=== PATIENT | female | born 1990 | race Caucasian/White ===

== ENCOUNTER 2017-10-23 01:11 | Outpatient (CLI) | payer BC, SELFPAY ==
--- NOTE | 2017-10-23 10:22 | DI.REPORT_ITS ---
SYMPTOM/DIAGNOSIS: ? SIZE LARGER THAN DATES, ROUTINE OB ULTRASOUND: A viable cephalic shipley is demonstrated. The cardiac rate is 165 BPM The amniotic fluid index is 15.9 which is at the upper limits of normal. The measurements suggest a gestational age of 39 weeks and 1 day. The placenta is Grade 2 and is anterior and fundal in position. Many abnormalities cannot be diagnosed. A normal exam does not exclude a congenital anomaly. Radiology No.[id number] LMP: Exam Date: 10/23/17 [facility] wks days on EDC ([facility]) Confirmed: HISTORY: S.D, EFW/MARY ---- PREDICTED GESTATIONAL AGE NUMBER 36 +5 weeks with a range of 35 +5 week to 38 +5 weeks. 1 Determined by___1STUS___LMP_XX__HISTORY Info. pertaining to fetus # PLACENTA PRESENTATION Grade II Cephalic__XX_ Anterior__XX_Posterior___ Breech____ Right Left Transverse(head right___ Fundal_XX__Low-lying___Previa___ Transverse(head left___ Varying BIOMETRY AMNIOTIC FLUID BPD: 93 mm 37 +6 weeks Normal HC: 344 mm 39 +5 weeks AC: 356 mm 39 +3 weeks FL: 77 mm 39 +2 weeks AMNIOTIC FLUID INDEX >26 WK CRL: mm weeks Cisterna Magna: mm CI: 81 RUQ:__3.2____LUQ___4.3 Cerebellum: cm EFW: 3725 grams 98% Percentile RLQ:_3.8 LLQ___4.6____ Total:__15.9__cms Composite AGE= 39 +1 wks EDC by US___10/29/17 BIOPHYSICAL PROFILE ANATOMY IDENTIFIED SCORE 0/2 Heart: 4-Chamber___Rate:BPM___165 BPM__ LVOT: RVOT: Amniotic Fluid(>2cms)____ Stomach: Kidneys: Respirations (>30 secs) Bladder: Post. Fossa: Body Flex/Extension 3 vessel cord: Ventricles: cord insertion: Lips:____ Extremity Flex/Extension spinal morphology: Nose: Total Score= Palate: NS=not seen
== END 2017-10-23 01:12 ==
DX: O26.843 Uterine size-date discrepancy, third trimester (principal)
CPT/HCPCS: 76816; 76805

== ENCOUNTER 2017-11-18 21:28 | Observation (INO) | payer BC, SELFPAY ==
[2017-11-18] MEDS: Lactated Ringers 1,000 ML 200 ML IV (20:30)
--- NOTE | 2017-11-20 09:11 | W.PM.DS.N ---
DS: Diagnosis Discharge Diagnosis (1) Post-dates : Status: Acute Asessment and Plan: with fetus in 98th percentile at 36 week ultrasound presented for planned cervical ripening with misoprostol. Had reactive strip prior to oral administration with FHT baselin in 140's. After receiving medication, tachycardia noted to 170-180's. Pt treated with position change and LR bolus. OB content management consultant contacted after these interventions failed to improve strip. OB kindly came in to consult-- strip had begun to improve. FHT down to 160's with improved variability and clear accelerations. Cervix FT and very posterior. Plan made for discharge to home, fu with primary provider next day, and repeat US for EFW in 1-2 days. Will work towards delivery this week. Discharge Plan Discharge Details Reason For Visit: TERM LABOR Admit Date/Time: 11/18/17 21:28 Admit Provider: Yuliya Chavira Attending Provider: Yuliya Chavira Primary Care Provider: Ghanshyam Jernigan Disposition Patient Disposition: HOME Condition: Stable Hosptial Course Hospital Course: See above Discharge Instructions Activity:: Activity as Tolerated Equipment/Supplies:: No Equipment Needed Diet:: As Tolerated Discharge Orders Discharge Orders: Discharge Order (Routine); Ordered 11/18/17 Ordered By: Yuliya Chavira Discharge Data Discharge Date/Time-TO BE ENTERED AT DEPARTURE: 11/18/17 23:07 Discharge Comment: Patient okay to be discharged home per providers. DS: Summary Status at Discharge Functional status at discharge: independent ambulation Overall status at discharge: patient is back to baseline Time Spent with Patient Greater than 30 minutes Quality: AMI Clinical Trial Participant: No Exam Const General: no acute distress and well developed HENMT Head: normal to inspection and normocephalic Mouth: oral mucosae normal and moist mucous membranes Eyes General: appearance normal, both eyes and all related structures Neck Neck: normal visual inspection and full ROM Resp Effort & Inspection: normal respiratory effort and able to speak in complete sentences Auscultation: clear to auscultation bilaterally Cardio Jugular venous pressure: no JVD Rate: regular rate Rhythm: regular rhythm Heart Sounds: S1 normal and S2 normal GI Other: gravid Manual OB Exam: dilated fingertip and other Skin General skin exam: no rashes or lesions noted Neuro General: alert, awake, oriented x3 and tone normal Extrem General: normal to inspection and no clubbing, cyanosis or edema Psych Appearance: grossly normal Mental Status: mental status grossly normal Speech and Movement: speech and movement normal Mood: congruent mood DS: Data Completed studies during hospitalization [Text1]: Procedures Monitoring of Products of Conception, Cardiac Rate, External Approach (10/19/17) Date of service: 11/18/17 Time of Service: 23:00
--- NOTE | 2017-11-22 12:45 | HPE_ITS ---
DATE: November 18, 2017 ASSESSMENT/PLAN: G1, P0 at 40 weeks, 3 days with now tachycardia following Misoprostol. OB co nsult pending. +++++++++++++++ CHIEF COMPLAINT: Planned Misoprostol cervical ripening, now with tachycardia. HISTORY OF PRESENT ILLNESS: Chrissie Peñaloza is a G1, P0 currently at 40 weeks, 3 days who was admit mary under observation status for planned Misoprostol cervical ripening for large for gestational age fetus and post-dates. She has an EDC of 11/15/17 and by ultrasound a fetus that was felt to be above the 90th percentile, somewhere between 9 and 10 pounds. Given that she has an unproven pelvis the de cision was made to move towards delivery. She had been having occasional contractions but with finge rtip she was checked by nursing and then an oral dose of Misoprostol was placed at approximately 7:15 p.m. After Misoprostol she developed tachycardia with heart tones up into the 170's. She also had decreased variability with occasional variables; this was intervened upon with position change and LR bolus, however tachycardia did not improve. Decision was made to consult the obstetric douglas auto air conditioning installer who kindly agreed to come in for evaluation. PAST MEDICAL HISTORY: 1. Obesity. 2. History of migraines in high school. 3. Remote history of malaria. SURGICAL HISTORY: None. ALLERGIES: No known drug allergies. MEDICATIONS: 1. B12 one tab p.o. daily. 2. vitamin one tab p.o. daily. SOCIAL HISTORY: Nonsmoker. Drinks about one drink per month. No marijuana use. FAMILY HISTORY: Paternal grandfather with diabetes. History of twins in the family. REVIEW OF SYSTEMS: No current headaches, blurry vision. No right upper quadrant pain. No chest pain. No shortness of breath. No significant abdominal contractions. Moderate back pain associated with . No change in urination. No new musculoskeletal complaints. No leakage of fluid. No vaginal bleeding. EXAM: Vital Signs per Centricity. Patient was alert, in no acute distress. HEENT: Head was normocephalic. Pupils equal and round; extraocular movements intact. Hearing elvi sly normal. Mucous membranes were moist. NECK: Supple; no thyromegaly. HEART: Regular with no appreciable murmur. LUNGS: Clear to auscultation bilaterally. ABDOMEN: Gravid; vertex by Lenin's. Large baby, estimated weight 9 to 9.5 pounds. CERVICAL EXAM: Notable for exceedingly posterior cervix, fingertip, not effaced, high. No labial so res. Patient ambulated under her own power. No skin rashes. LABORATORY DATA: Blood type O positive. RPR nonreactive. Hep B surface antigen negative. Rubella immune. Hemoglobin 14.4, platelets 250,000. Antibody screen negative. HIV negative. Thin prep normal. GC and chlamydia negative. Urine tox negative. Group B strep negative by report. I will verify that under our EMR.
== END 2017-11-18 23:07 | disposition home or self-care (01) | DRG 782 ==
PROVIDERS: Admitting Provider Family Medicine; PCP Internal Medicine; Visit Provider Family Medicine
DX: O48.0 Post-term pregnancy (principal); O36.63X0 Maternal care for excessive fetal growth, third trimester, not applicable or unspecified; Z3A.40 40 weeks gestation of pregnancy; O76 Abnormality in fetal heart rate and rhythm complicating labor and delivery
CPT/HCPCS: 85027; 86900; 86901; NC; 59200; G0378; J3490

== ENCOUNTER → 2017-11-20 01:23 | Outpatient (CLI) | payer BC, SELFPAY ==
--- NOTE | 2017-11-20 09:11 | DI.US_ITS ---
SYMPTOMS/DIAGNOSIS: EFW, BPP, LGA BIOPHYSICAL PROFILE: Many abnormalities cannot be diagnosed. A normal exam does not exclude a congenital anomaly. Radiology No. [id number] LMP: Exam Date: 11/20/2017 [facility] wks days on EDC 11/15/17 Confirmed: HISTORY: ---- PREDICTED GESTATIONAL AGE NUMBER 40+5 weeks with a range of 39+5 weeks to 41+5 weeks. 1 Determined by___1STUS___LMP__X_HISTORY PLACENTA PRESENTATION Grade II Cephalic_X__ Anterior_X__Posterior___ Breech____ Right Left Transverse(head right___ Fundal___Low-lying___Previa___ Transverse(head left___ Varying BIOMETRY AMNIOTIC FLUID BPD: 101 mm 41+4 weeks Normal HC: 357 mm 41+6 weeks AC: 379 mm 41+6 weeks FL: 86 mm 42 weeks AMNIOTIC FLUID INDEX >26 WK CRL: mm weeks Cisterna Magna: mm CI: 83 RUQ: 5.6 LUQ: 2.5 Cerebellum: cm EFW: 4623 grams Percentile: 97th RLQ: 5.8 LLQ: 0 Total: 13.9 cm Composite AGE= 41+5 wks EDC by US: 11/08/17 BIOPHYSICAL PROFILE ANATOMY IDENTIFIED SCORE 0/2 Heart: 4-Chamber___Rate:BPM LVOT: RVOT: Amniotic Fluid(>2cms)_2___ Stomach: Kidneys: Respirations (>30 secs)_2____ Bladder: Post. Fossa: Body Flex/Extension__2____ 3 vessel cord: Ventricles: cord insertion: Lips:____ Extremity Flex/Extension___2____ spinal morphology: Nose: Total Score = 8 Palate: NS=not seen COMMENTS: There is a single living intrauterine gestation. Estimated sonographic age is 41 weeks 5 days. The fetus is in the cephalic presentation. Estimated weight is 4623 g, which is the 97th percentile. The placenta is anterior and unremarkable. The amniotic fluid is 13.9 cm. Visually, the amniotic fluid appears within normal limits. The biophysical profile is 8/8. IMPRESSION: Single living intrauterine gestation. Biophysical profile score 8/ 8.
== END ==
PROVIDERS: PCP Internal Medicine; Visit Provider Family Medicine
DX: O36.63X1 Maternal care for excessive fetal growth, third trimester, fetus 1 (principal); O26.843 Uterine size-date discrepancy, third trimester; Z34.83 Encounter for supervision of other normal pregnancy, third trimester
CPT/HCPCS: 76815; 76819

== ENCOUNTER 2017-11-21 08:23 | Observation (INO) | payer BC, SELFPAY ==
[2017-11-21 09:12] LABS: HCT 38.7 % (36.0-46.0); Mean Corp. HGB Concentration 33.6 g/dL (32.0-36.0); Mean Corpuscular Hemoglobin 28.9 pg (27.0-33.0); Mean Platelet Volume 10.9 fL (8.0-11.0); Platelet Count 197 x1000/uL (130-400); RBC Distribution Width 14.5 % (11.7-14.6); White Blood Cell Count 12.48 k/cumm (4.4-10.8)
[2017-11-21] MEDS: Lactated Ringers 1,000 ML 125 ML IV ×2 (09:30→17:41)
[2017-11-21] MEDS: Normal Saline Flush 10 ML SYR IVP (11:18)
[2017-11-22] MEDS: Ibuprofen 600 MG TAB PO ×3 (05:15→20:06)
[2017-11-22] MEDS: Lidocaine 2% Multi-Dose 20 ML VIAL (05:19)
[2017-11-22] MEDS: Normal Saline Flush 10 ML SYR IVP (13:05)
[2017-11-22] MEDS: Acetaminophen 325 MG TAB 650 MG PO (18:33)
[2017-11-22] MEDS: Docusate Sodium 100 MG CAP PO (20:06)
[2017-11-23] MEDS: Acetaminophen 325 MG TAB 650 MG PO ×4 (00:05→19:49)
[2017-11-23] MEDS: Ibuprofen 600 MG TAB PO ×3 (05:32→19:49)
[2017-11-23 07:16] LABS: HCT 34.7 % (36.0-46.0); HGB 11.6 g/dL (12.0-15.5); Mean Corp. HGB Concentration 33.4 g/dL (32.0-36.0); Mean Corpuscular Hemoglobin 29.1 pg (27.0-33.0); Mean Corpuscular Volume 87.2 fL (80-95); Mean Platelet Volume 10.9 fL (8.0-11.0); Platelet Count 181 x1000/uL (130-400); RBC 3.98 m/cumm (4.00-5.20); RBC Distribution Width 14.8 % (11.7-14.6); White Blood Cell Count 13.99 k/cumm (4.4-10.8)
[2017-11-23] MEDS: Docusate Sodium 100 MG CAP PO (08:18)
[2017-11-23 17:48] LABS: Lidocaine <1.0 mcg/mL (1.5 - 5.0)
[2017-11-24] MEDS: Docusate Sodium 100 MG CAP PO ×2 (00:02→13:01)
[2017-11-24] MEDS: Acetaminophen 325 MG TAB 650 MG PO (00:02)
[2017-11-24] MEDS: Hamamelis Leaf/Glycerin 100 EACH BOX PR (00:05)
[2017-11-24] MEDS: Ibuprofen 600 MG TAB PO ×2 (02:48→12:12)
== END 2017-11-24 13:30 | disposition home or self-care (01) | DRG 775 ==
PROVIDERS: Nurse Anesthetist, Certified Registered; Admitting Provider Family Medicine; PCP Internal Medicine; Visit Provider Family Medicine
DX: O48.0 Post-term pregnancy (principal); Z37.0 Single live birth; Z3A.41 41 weeks gestation of pregnancy; O77.0 Labor and delivery complicated by meconium in amniotic fluid; O69.81X0 Labor and delivery complicated by cord around neck, without compression, not applicable or unspecified; O70.1 Second degree perineal laceration during delivery; O63.1 Prolonged second stage (of labor); O66.0 Obstructed labor due to shoulder dystocia; O92.79 Other disorders of lactation; O99.344 Other mental disorders complicating childbirth; F43.10 Post-traumatic stress disorder, unspecified; F32.9 Major depressive disorder, single episode, unspecified; Z91.410 Personal history of adult physical and sexual abuse
CPT/HCPCS: 36415; 85027; 86850; 86900; 86901; 80176; J3490

== ENCOUNTER 2019-08-05 12:53 | Outpatient (CLI) | payer BC, SELFPAY ==
--- NOTE | 2019-08-05 | DI.US_ITS ---
EXAM: US OB 2-3 TRIMESTER CLINICAL HISTORY: ENCOUNTER FOR 2ND TRIMESTER Z34.82. TECHNIQUE: Transabdominal obstetrical ultrasound performed. COMPARISON: No previous for comparison. FINDINGS: There is a single living intrauterine gestation. The estimated gestational age is 21 weeks 4 days. The fetus is in the cephalic presentation. heart rate is 162 beats per minute. No abnor malities are identified sonographically. The placenta is anterior and fundal. No evidence of previa. Amniotic fluid appears within normal limits. IMPRESSION: 1. Single living intrauterine gestation with estimated sonographic age 21 weeks 4 days. DATA REPOSITORY:
== END 2019-08-05 13:13 ==
PROVIDERS: PCP Internal Medicine; Visit Provider Family Medicine
DX: Z34.92 Encounter for supervision of normal pregnancy, unspecified, second trimester (principal); Z3A.21 21 weeks gestation of pregnancy
CPT/HCPCS: 76805

== ENCOUNTER 2019-12-02 01:22 | Outpatient (CLI) | payer BC, SELFPAY ==
--- NOTE | 2019-12-02 | DI.US_ITS ---
EXAM: US OB MARY WEIGHT CLINICAL HISTORY: ? POSITION OF FETUS AND WEIGHT PER PROVIDER TECHNIQUE: Ultrasound performed using standard protocol. COMPARISON: US US OB 2-3 TRIMESTER from 08/05/2019 FINDINGS: Ob ultrasound was performed utilizing limited 3rd trimester protocol. The estimated weight is 4137 grams which is at the 99th percentile for predicted gestational age 38 weeks. The EDC is 12/09/2019. Fetus is in cephalic presentation. heart rate 157 BPM. IMPRESSION: DATA REPOSITORY:
== END 2019-12-02 01:42 ==
PROVIDERS: PCP Family Medicine; Visit Provider Family Medicine
DX: Z34.93 Encounter for supervision of normal pregnancy, unspecified, third trimester (principal); Z3A.38 38 weeks gestation of pregnancy
CPT/HCPCS: 76816

== ENCOUNTER 2019-12-10 09:07 | Inpatient (IN) | payer BC, SELFPAY ==
[2019-12-10] VITALS (14 sets, daily range): BP systolic 122–153; BP diastolic 61–83; PULSE 65–104; RESP 18; TEMP 36.9
[2019-12-10 11:30] LABS: HCT 40.5 % (36.0-46.0); HGB 13.4 g/dL (11.2-15.7); MCHC 33.1 % (32.0-36.0); MCV 87.7 fL (80-95); MPV 11.1 fL (8.0-11.0); Platelet Count 220 10^3/uL (130-400); RBC 4.62 10^6/uL (3.93-5.22); RDW 14.1 % (11.7-14.6); RDW-SD 43.7 fL; WBC 12.84 10^3/uL (4.4-10.8)
--- NOTE | 2019-12-10 11:59 | HPE_ITS ---
Date of service: 12/10/19 Time of Service: 11:59 Assessment and Plan Assessment and plan (1) with 39 completed weeks gestation: Status: Acute Assessment and plan: 29y at 39w with Rh+ GBS- RI with history of macrosomia with a forceps delivery with shoulder dystocia and clavicular fracture. She has had an uncomplicated so far. Presented to clinic this morning reporting regular uterine contractions since 4am. They were 6-7min apart, moderate, lasting 1min. SVE at that time was 4/50/-3. We instructed her to present to the Center at which time her contractions had increased to 5min apart and more intense. SVE still 4 but baby was significantly lower. Discussed risk of shoulder dystocia given history and possible need for . She is aware. Otherwise routine labor management. (2) macrosomia: Status: Acute Assessment and plan: Discussed risks, see above Qualifiers: Fetus number: single or unspecified fetus Trimester: third trimester Qualified Code(s): O36.63X0 - Maternal care for excessive growth, third trimester, not applicable or unspecified OB-HPI Labor/Delivery History of Present Illness Reason for Visit: LABOR Chief Complaint: Uterine Contractions. KEREN Calculator Estimated Delivery Date Method Current WG Current Estimate 12/17/19 Manual 39w 0d History of Present Expected Delivery Route/Plan anticipated vaginal delivery, pt hopes to use nitrous, no epidural Specific Issues/Plan macrosomia Informed Consent Informed Consent: Risk,Benefits,Alternatives Discussed (offered primary due to history of macrosomia with shoulder dystocia and clavicular fracture. She declined) [facility] Medical History (Updated 12/10/19 @ 12:19 by Abimael Juarez) Post-dates Social History Smoking/Tobacco Use Status: Never Alcohol Intake: former Substance use type: does not use History History 2 Para 1 Hx # Term Pregnancies Multiple births Hx # Pregnancies Ectopic pregnancies AB induced Hx Number of Living Children AB spontaneous Meds Home Medications and Allergies Home Medications Medication Instructions Recorded Confirmed Type [id number] fumarate-FA 1 tab PO DAILY 11/21/17 12/10/19 History [] Allergies Allergy/AdvReac Type Severity Reaction Status Date / Time No Known Allergies Allergy Verified 12/10/19 10:35 Exam Physical Exam Vital signs: Temp Pulse Resp BP 36.9 C 79 18 140/83 12/10/19 10:53 12/10/19 10:53 12/10/19 10:53 12/10/19 10:53 Vital Signs Reviewed: Yes Constitutional Constitutional: mild distress (with contractions) Detailed Labor and Delivery Exam Dilation: 4 Effacement (%): 50 station: -3 Position: OA Consistency: soft Amniotic Membrane Status: Intact Monitor Mode: External (intermitent) Contraction Frequency(min): q5m Contraction Duration(sec): 60 Contraction Intensity: Moderate/Strong Fetus A Heart Rate Baseline: 140 Monitor Accelerations: 15 X 15 Monitor Decelerations: None Variability: Moderate (6-25 BPM) Presentation: Cephalic Est. Weight: 4200 g Assessment Note: category 1 strip HEENT Exam HEENT Exam: Normal Respiratory Exam Respiratory Exam: Normal Cardiovascular Exam Cardiovascular Exam: Normal Abdominal Exam Abdominal Exam: Normal Extremities Exam Extremities Exam: Normal Neurological Exam Neurological Exam: Normal Psychiatric Exam Psychiatric Exam: Normal Results Results Blood Type: O+ Abnormal Lab Findings: Abnormal Labs 12/10/19 11:12 WBC 12.84 H MPV 11.1 H Risk Assessment Risk for Shoulder Dystocia Historical/Initial OB: POSITIVE FOR: Pre- BMI>30, Previous Shoulder Dystocia and Previous Macrosomia Increased Risk?: Yes Risk for Pre-Eclampsia Daily Dose ASA Indicated: No Risk for Post- Hemorrhage At Risk?: No Counseled re: Active Management: Yes [place] [facility] [place] Risks Reviewed Risks Reviewed Upon Admission: Yes
[2019-12-10] MEDS: Normal Saline Flush 10 ML SYR IVP (12:46)
--- NOTE | 2019-12-10 12:48 | DSE_ITS ---
DS: Diagnosis Discharge Diagnosis (1) with 39 completed weeks gestation: Status: Acute (2) macrosomia: Status: Acute Discharge Plan Discharge Details Reason For Visit: LABOR Admit Date/Time: 12/10/19 09:09 Admit Provider: Abimael Juarez Attending Provider: Abimael Juarez Primary Care Provider: Abimael Juarez Home Meds and New Rx's Prescriptions: No Action 28-800 mg-mcg Tablet 1 tab PO DAILY RF: 0 Procedure Procedures: Control of Hemorrhage/ Cord Blood Collection Exam Physical Exam Vital signs: Temp Pulse Resp BP 36.9 C 87 18 131/80 12/10/19 10:53 12/10/19 12:12 12/10/19 10:53 12/10/19 12:12 [facility] Medical History (Updated 12/10/19 @ 12:19 by Abimael Juarez) Post-dates Social History Smoking/Tobacco Use Status: Never Alcohol Intake: former Substance use type: does not use History History 2 Para 1 Hx # Term Pregnancies Multiple births Hx # Pregnancies Ectopic pregnancies AB induced Hx Number of Living Children AB spontaneous DS: Data Vitals/I&O Vitals and I&O: Vital Signs Temperature 36.9 C 12/10/19 10:53 Pulse 87 12/10/19 12:12 Pulse Rhythm Regular 12/10/19 10:41 Respiratory Rate 18 12/10/19 10:53 Respiratory Depth Normal 12/10/19 10:41 Blood Pressure 131/80 12/10/19 12:12 Intake & Output 12/09/19 12/10/19 12/10/19 23:59 11:59 23:59 Intake Total Balance Weight 115.212 kg Intake: IV Data Completed and Pending Labs on day of discharge: Labs from last 24 hours 12/10/19 12/10/19 11:12 11:12 WBC 12.84 H RBC 4.62 Hgb 13.4 Hct 40.5 MCV 87.7 MCH 29.0 MCHC 33.1 RDW 14.1 Plt Count 220 MPV 11.1 H Patient ABO/Rh O Positive Antibody Screen Negative
--- NOTE | 2019-12-10 13:31 | W.PM.OBNL1 ---
Date of service: 12/10/19 Time of Service: 13:31 Informed Consent Informed Consent: Risk,Benefits,Alternatives Discussed (offered primary due to history of macrosomia with shoulder dystocia and clavicular fracture. She declined) Pelvic Exam Dilation: 6 Effacement (%): 75 station: -2 Cervix Position: mid Consistency: soft Contractions Monitor Mode: External Contraction Frequency(min): q5m Intensity: Moderate/Strong Fetus A Heart Rate Baseline: 150 Assessment and Plan Assessment and plan (1) with 39 completed weeks gestation: Status: Acute Assessment and plan: Nancy is doing well, good relief from Nitrous, resting between contractions. SVE 6/75/-2, good progress. Continue present management Objective Abnormal lab results 12/10/19 Range/Units 11:12 WBC 12.84 H (4.4-10.8) 10^3/uL MPV 11.1 H (8.0-11.0) fL Temp Pulse Resp BP 36.9 C 87 18 131/80 12/10/19 10:53 12/10/19 12:12 12/10/19 10:53 12/10/19 12:12 Laboratory Results WBC 12.84 10^3/uL (4.4-10.8) H 12/10/19 11:12 RBC 4.62 10^6/uL (3.93-5.22) 12/10/19 11:12 Hgb 13.4 g/dL (11.2-15.7) 12/10/19 11:12 Hct 40.5 % (36.0-46.0) 12/10/19 11:12 MCV 87.7 fL (80-95) 12/10/19 11:12 MCH 29.0 pg (27.0-33.0) 12/10/19 11:12 MCHC 33.1 % (32.0-36.0) 12/10/19 11:12 RDW 14.1 % (11.7-14.6) 12/10/19 11:12 Plt Count 220 10^3/uL (130-400) 12/10/19 11:12 MPV 11.1 fL (8.0-11.0) H 12/10/19 11:12 Patient ABO/Rh O Positive 12/10/19 11:12 Antibody Screen Negative 12/10/19 11:12 Vital Signs Reviewed: Yes Subjective Patient Reports: No new Complaints Results Hemoglobin/Hematocrit: Hgb 13.4 g/dL (11.2-15.7) 12/10/19 11:12 Hct 40.5 % (36.0-46.0) 12/10/19 11:12 Abnormal Lab Findings: Abnormal Labs 12/10/19 11:12 WBC 12.84 H MPV 11.1 H
--- NOTE | 2019-12-10 15:52 | W.PM.OBNL1 ---
Date of service: 12/10/19 Time of Service: 15:52 Informed Consent Informed Consent: Risk,Benefits,Alternatives Discussed (offered primary due to history of macrosomia with shoulder dystocia and clavicular fracture. She declined) Pelvic Exam Dilation: 9 Effacement (%): 90 station: -1 Cervix Position: anterior Consistency: soft Vaginal Exam Presentation: Cephalic Comments: bulging bag Contractions Monitor Mode: External (intermitent) Contraction Frequency(min): q5m Intensity: Strong Fetus A Monitor: Doppler Heart Rate Baseline: 145 Presentation: Cephalic Variability: Moderate (6-25 BPM) Categories: Category I Characteristics: Normal Accelerations: 15 X 15 Decelerations: None Amniotic Membrane Status: Intact Assessment and Plan Assessment and plan (1) with 39 completed weeks gestation: Status: Acute Assessment and plan: Nancy is making excellent progress and managing pain well. Continue current management Objective Abnormal lab results 12/10/19 Range/Units 11:12 WBC 12.84 H (4.4-10.8) 10^3/uL MPV 11.1 H (8.0-11.0) fL Temp Pulse Resp BP 36.9 C 98 H 18 153/69 H 12/10/19 10:53 12/10/19 15:15 12/10/19 10:53 12/10/19 15:15 Laboratory Results WBC 12.84 10^3/uL (4.4-10.8) H 12/10/19 11:12 RBC 4.62 10^6/uL (3.93-5.22) 12/10/19 11:12 Hgb 13.4 g/dL (11.2-15.7) 12/10/19 11:12 Hct 40.5 % (36.0-46.0) 12/10/19 11:12 MCV 87.7 fL (80-95) 12/10/19 11:12 MCH 29.0 pg (27.0-33.0) 12/10/19 11:12 MCHC 33.1 % (32.0-36.0) 12/10/19 11:12 RDW 14.1 % (11.7-14.6) 12/10/19 11:12 Plt Count 220 10^3/uL (130-400) 12/10/19 11:12 MPV 11.1 fL (8.0-11.0) H 12/10/19 11:12 Patient ABO/Rh O Positive 12/10/19 11:12 Antibody Screen Negative 12/10/19 11:12 Subjective Interval history since last seen: contractions more intense, nitrous still effective Results Hemoglobin/Hematocrit: Hgb 13.4 g/dL (11.2-15.7) 12/10/19 11:12 Hct 40.5 % (36.0-46.0) 12/10/19 11:12 Abnormal Lab Findings: Abnormal Labs 12/10/19 11:12 WBC 12.84 H MPV 11.1 H
--- NOTE | 2019-12-10 17:17 | W.PM.OBNL1 ---
Date of service: 12/10/19 Time of Service: 17:17 Informed Consent Informed Consent: Risk,Benefits,Alternatives Discussed (offered primary due to history of macrosomia with shoulder dystocia and clavicular fracture. She declined) Pelvic Exam Dilation: 9.5 Effacement (%): 100 station: 0 Cervix Position: anterior Consistency: soft Vaginal Exam Presentation: Cephalic ROM Plus: Positive Contractions Monitor Mode: External Contraction Frequency(min): q2m Contraction Duration(sec): 60 Intensity: Strong Fetus A Monitor: External (US) Heart Rate Baseline: 130 Presentation: Cephalic Variability: Moderate (6-25 BPM) Categories: Category I FHR Rhythm: Regular Accelerations: 15 X 15 Decelerations: None Amniotic Membrane Status: Ruptured Rupture Method: Artifical (AROM performed after discussion) Amniotic Fluid: Meconium Amount: moderate amount of moderately dark meconium stained fluid Date of Membrane Rupture: 12/10/19 Time of Membrane Rupture: 17:14 Assessment and Plan Assessment and plan (1) with 39 completed weeks gestation: Status: Acute Assessment and plan: Nancy is progressing and at anterior lip now. Discussed AROM to help her be ready to push. She agreed and it was performed with moderate mec stained fluid. Plan to start pushing when she feels the urge. OB aware of her status and in house given history of shoulder dystocia and current macrosomia. Objective Abnormal lab results 12/10/19 Range/Units 11:12 WBC 12.84 H (4.4-10.8) 10^3/uL MPV 11.1 H (8.0-11.0) fL Temp Pulse Resp BP 36.9 C 82 18 122/62 12/10/19 15:15 12/10/19 16:12 12/10/19 15:15 12/10/19 16:12 Laboratory Results WBC 12.84 10^3/uL (4.4-10.8) H 12/10/19 11:12 RBC 4.62 10^6/uL (3.93-5.22) 12/10/19 11:12 Hgb 13.4 g/dL (11.2-15.7) 12/10/19 11:12 Hct 40.5 % (36.0-46.0) 12/10/19 11:12 MCV 87.7 fL (80-95) 12/10/19 11:12 MCH 29.0 pg (27.0-33.0) 12/10/19 11:12 MCHC 33.1 % (32.0-36.0) 12/10/19 11:12 RDW 14.1 % (11.7-14.6) 12/10/19 11:12 Plt Count 220 10^3/uL (130-400) 12/10/19 11:12 MPV 11.1 fL (8.0-11.0) H 12/10/19 11:12 Patient ABO/Rh O Positive 12/10/19 11:12 Antibody Screen Negative 12/10/19 11:12 Subjective Patient Reports: No new Complaints Interval history since last seen: Continues to labor well. Results Hemoglobin/Hematocrit: Hgb 13.4 g/dL (11.2-15.7) 12/10/19 11:12 Hct 40.5 % (36.0-46.0) 12/10/19 11:12 Abnormal Lab Findings: Abnormal Labs 12/10/19 11:12 WBC 12.84 H MPV 11.1 H
[2019-12-10] MEDS: Oxytocin 10 UNITS/ML VIAL IM (17:45)
--- NOTE | 2019-12-10 18:22 | OBVDS_ITS ---
Date of service: 12/10/19 Time of Service: 18:22 OB Labor/ Delivery Information Providers Doctor: Abimael Juarez Nurse: Radha Gan Nurse: Tawnya Velasquez Other: Lauren Julien MD ([facility] [place]) Labor/Delivery Information Number of Babies in Womb: 1 Steroids Given: None Reason Steroids Not Administered: N/A Group Beta Strep: Negative Antibiotics Administered: No Rubella Status: Immune Blood Type: O+ Varicella Immunity: Not Tested Born En Route: No Maternal Complications: None Shoulder Dystocia: No Note: Once Nancy reach complete, she pushed for only 25 minutes with excellent effect. After head was delivered in OA position, mom paused and baby restituted slowly. When she pushed again he delivered fully without complication. He was dried and placed on moms abdomen. After cord stopped pulsing, cord was cut by dad. Placenta was delivered without incident. On inspection, there was found to be a partial third degree perineal laceration. I asked Dr Goncalves to complete the repair due to its extension. Please see her note. Baby boy was resting comfortably on mom, apgars of 9 and 9. Stages of Labor Onset of Labor Date: 12/10/19 Onset of Labor Time: 04:00 Complete Dilatation Date: 12/10/19 Complete Dilatation Time: 17:28 Labor - Stage 1 Duration: 0 minutes ROM Baby A: 12/10/19 ROM Baby A: 17:14 ROM Total Time- Baby A: [id number] Infant Delivery Date-Baby A: 12/10/19 Infant Delivery Time-Baby A: 17:39 Labor Stage 2 Duration: 11 minutes Placenta Delivery Date-Baby A: 12/10/19 Placenta Delivery Time-Baby A: 17:47 Labor-Stage 3 Duration: 8 minutes Total Length of Labor-Baby A: 13 hours and 39 minutes Placenta Cultured: No Placenta Status: Delivered Baby A Gender: Male Gestational Status: Term Gestational Age in Weeks/Days: 39 Weeks and 0 Days Score-1 Minute Interval(Baby A) Heart Rate-1 minute: 100 BPM or Greater Respiratory Effort- 1 minute: Spontaneous/Strong Cry Muscle Tone-1 minute: Active Movement Reflex Response-1 minute: Prompt Response Color-1 minute: Bluish Hands or Feet Total Score-1 minute: 9 Score-5 Minute Interval(Baby A) Heart Rate- 5 minute: 100 BPM or Greater Respiratory Effort-5 minute: Spontaneous/Strong Cry Muscle Tone-5 minute: Active Movement Reflex Response-5 minute: Prompt Response Color-5 minute: Bluish Hands or Feet Total Score- 5 minute: 9 Baby A Delivery Delivery Method: Spontaneaous Presentation: Cephalic Cephalic Position: Vertex Vertex Position: Left Occipital Anterior (straight OA) Cord Description-Baby A: 3 Vessels Membrane Rupture: Artificial Amniotic Fluid: Meconium Amniotic Fluid Amount: Moderate Amniotic Fluid Odor: Normal Estimated Blood Loss: 50 Delivery Outcome: Liveborn Infant Complications: none Infant Disposition: Remains with Mother Interventions Repair of Laceration Type: Perineal , Laceration Extension: Third Degree . Sponge Count Correct: Yes , Sharp Count Correct: Yes . Laceration Repair Note: Please see note from Dr Goncalves who performed repair
[2019-12-10] MEDS: Lidocaine 1% Multi-Dose 20 ML VIAL IJ (18:56)
[2019-12-10] MEDS: Acetaminophen 325 MG TAB 650 MG PO (19:19)
[2019-12-10] MEDS: Hamamelis Leaf/Glycerin 100 EACH BOX PR (19:19)
[2019-12-10] MEDS: Ibuprofen 600 MG TAB PO (19:19)
[2019-12-11 00:01] VITALS: TEMP 36.8
[2019-12-11] MEDS: Acetaminophen 325 MG TAB 650 MG PO ×4 (00:01→21:00)
[2019-12-11 00:14] VITALS: BP 140/82; PULSE 68; RESP 20; TEMP 36.8
[2019-12-11] MEDS: Ibuprofen 600 MG TAB PO ×4 (03:14→23:51)
--- NOTE | 2019-12-11 04:47 | NUR.NOTE ---
Using cold pack/pads, tucks, dubocaine ointment, tylenol, and Ibuprofen for 3rd degree laceration pain. Pt verbalizes that this treatment helps. Nipples are slightly tender. Given nipple cream and gel pads. Pt states these are helping.
--- NOTE | 2019-12-11 05:43 | W.OBCONSULT ---
Date of service: 12/10/19 History of Present Illness History of Present Illness Chief Complaint: Perineal LAceration Narrative: Kindly asked to evaluate patient post delivery for perineal laceration and repair of such. Noted to be a partiall 3rd degree laceration Consults Consult date: 12/10/19 Requesting physician: Abimael Juarez [facility] Medical History (Updated 12/10/19 @ 12:19 by Abimael Juarez) Post-dates Social History Smoking/Tobacco Use Status: Never Alcohol Intake: former Substance use type: does not use History History 2 Para 1 Hx # Term Pregnancies Multiple births Hx # Pregnancies Ectopic pregnancies AB induced Hx Number of Living Children AB spontaneous Exam Const General: cooperative and healthy appearing Nutritional Appearance: average body habitus Resp Effort & Inspection: normal respiratory effort Cardio Rate: regular rate GI Inspection: normal to inspection Other: perineal laceration with minimal capsule extension. Repaired with 3'0 vicryl in the usual fashion and found to be hemostatic. No vaginal or cervical lacerations noted Results Last Vital Signs Temp 98.3 F 12/11/19 00:14 Pulse 68 12/11/19 00:14 Resp 20 12/11/19 00:14 BP 140/82 12/11/19 00:14 Labs Result diagrams: 12/10/19 11:12 Labs: Laboratory Results - last 24 hr 12/10/19 12/10/19 11:12 11:12 WBC 12.84 H RBC 4.62 Hgb 13.4 Hct 40.5 MCV 87.7 MCH 29.0 MCHC 33.1 RDW 14.1 Plt Count 220 MPV 11.1 H Patient ABO/Rh O Positive Antibody Screen Negative
[2019-12-11 07:45] VITALS: BP 124/69; PULSE 69; RESP 16; TEMP 37.1
--- NOTE | 2019-12-11 07:59 | W.PM.OBPNV1 ---
Date of service: 12/11/19 Time of Service: 08:05 Assessment and Plan Assessment and plan (1) (normal spontaneous vaginal delivery): Status: Acute Assessment and plan: Nancy is doing well ppd1. Will have work with her. Continue present management for pain. Encourage out of bed today. Routine post care. Anticipate DC tomorrow. Subjective Subjective Interval history: Nancy is PPD 1 doing very well. She was able to sleep overnight and Rahul ate well. She is asking for some support with though and I will ask to come in. Up and about voiding well. No BMs. Moderate lochia. Pain is moderate but controlled with NSAIDs. Exam Physical Exam Vital signs: Temp Pulse Resp BP 36.8 C 68 20 140/82 12/11/19 00:14 12/11/19 00:14 12/11/19 00:14 12/11/19 00:14 Vital Signs Reviewed: Yes Constitutional Constitutional: no acute distress HEENT Exam HEENT Exam: Normal Breast Exam Bilateral: Breast Exam: Normal Nipple Exam: Other (somewhat flat) Fundal Exam Fundus: Below Umbilicus and Firm Exam Patient deferred: perineal exam Perineum: Repair Intact External: Present normal urethra appearance Extremities Exam Extremity Exam: Normal Results Hemoglobin/Hematocrit: Hgb 13.4 g/dL (11.2-15.7) 12/10/19 11:12 Hct 40.5 % (36.0-46.0) 12/10/19 11:12 Abnormal Lab Findings: Abnormal Labs 12/10/19 11:12 WBC 12.84 H MPV 11.1 H
[2019-12-11] MEDS: Docusate Sodium 100 MG CAP PO ×2 (08:38→21:00)
--- NOTE | 2019-12-11 15:42 | NUR.NOTE ---
Pt assisted in putting baby to breast with nipple shield, discussed POC. Will do shift assessment after feeding
[2019-12-11 15:55] VITALS: BP 113/64; PULSE 78; RESP 14; TEMP 36.6; O2SAT 98
[2019-12-12] MEDS: Acetaminophen 325 MG TAB 650 MG PO ×3 (00:34→09:37)
--- NOTE | 2019-12-12 00:52 | NUR.NOTE ---
Discussed hand expressing colostrum and cup or spoon feeding it to as she has nipple soreness. using hydrogel pads, mother love and nipple shield sometimes.ursing Note:
[2019-12-12 09:10] VITALS: PULSE 73; RESP 20; TEMP 36.5; O2SAT 98
[2019-12-12] MEDS: Ibuprofen 600 MG TAB PO (09:38)
--- NOTE | 2019-12-12 10:01 | W.PM.OBDISCH ---
Date of service: 12/12/19 Time of Service: 10:01 DS: Diagnosis Discharge Diagnosis (1) (normal spontaneous vaginal delivery): Status: Acute Discharge Plan Disposition Patient Disposition: HOME Condition: Good Discharge Details Reason For Visit: LABOR Admit Date/Time: 12/10/19 09:07 Admit Provider: Abimael Juarez Attending Provider: Abimael Juarez Primary Care Provider: Abimael Juarez Hospital Course Hospital Course: 29y [id number] at 39w presented in active labor. She had an uncomplicated labor and delivery with category 1 strip throughout. She did have a partial third degree laceration repaired by Dr Goncalves. Post op, she has been doing well. She has had some difficulty with nursing, with pain, using the nipple shield. however she is happy that her milk has come in much quicker and stronger than with her first. She is sore from lac but managing pain well with ice packs and NSAIDs. She has voided and stooled. Up and about without problems. Lochia decreasing appropriately. Plan to DC home today. Home Meds and New Rx's Prescriptions: No Action 28-800 mg-mcg Tablet 1 tab PO DAILY RF: 0 Discharge Instructions Stand Alone Forms: BC Instructions, BC Post Vaginal Deliver Activity:: no strenuous activity Equipment/Supplies:: No Equipment Needed Diet:: As Tolerated Discharge Orders Discharge Orders: Discharge Order (Routine); Ordered 12/12/19 Ordered By: Abimael Juarez OB:DS Summary Summary Vaginal Delivery Method: Spontaneaous Episiotomy Description: None Laceration Description: Perineal Laceration Extension: Third Degree Contraception Discussed Contraception Discussed: Yes, [place] Infant Gender-Baby A: Male weight: 4030 g Status at Discharge Functional status at discharge: independent ambulation Overall status at discharge: patient is progressing back to baseline Mental Status: mental status grossly normal Speech and Movement: speech and movement normal Mood: congruent mood Affect: normal affect Exam Physical Exam Vital signs: Temp Pulse Resp BP Pulse Ox 36.6 C 78 14 113/64 98 12/11/19 15:55 12/11/19 15:55 12/11/19 15:55 12/11/19 15:55 12/11/19 15:55 Vital Signs Reviewed: Yes Constitutional Constitutional: no acute distress HEENT Exam HEENT Exam: Normal Respiratory Exam Respiratory Exam: Normal Cardiovascular Exam Cardiovascular Exam: Normal Fundal Exam Fundus: Below Umbilicus and Firm Extremities Exam Extremity Exam: Normal [facility] Medical History (Updated 12/11/19 @ 08:04 by Abimael Juarez) Post-dates Social History Smoking/Tobacco Use Status: Never Alcohol Intake: former Substance use type: does not use History History 2 Para 1 Hx # Term Pregnancies Multiple births Hx # Pregnancies Ectopic pregnancies AB induced Hx Number of Living Children AB spontaneous DS: Data Vitals/I&O Vitals and I&O: Vital Signs Temperature 36.6 C 12/11/19 15:55 Pulse 78 12/11/19 15:55 Pulse Rhythm Regular 12/12/19 00:47 Respiratory Rate 14 12/11/19 15:55 Respiratory Depth Normal 12/11/19 15:55 Blood Pressure 113/64 12/11/19 15:55 Blood Pressure Mean 80 12/11/19 15:55 Pulse Oximetry 98 12/11/19 15:55 Pain Level 4 12/12/19 09:38 Intake & Output 12/11/19 12/11/19 12/12/19 11:59 23:59 11:59 Intake Total 800 / 800 Output Total 1600 / 1600 Balance -800 / -800 Intake: Oral 800 / 800 Output: Urine 1600 / 1600 Other: Urine Color Yellow
== END 2019-12-12 13:40 | disposition home or self-care (01) | DRG 768 ==
PROVIDERS: Admitting Provider Family Medicine; PCP Family Medicine; Visit Provider Family Medicine
DX: O77.0 Labor and delivery complicated by meconium in amniotic fluid (principal); Z37.0 Single live birth; O70.20 Third degree perineal laceration during delivery, unspecified; O92.79 Other disorders of lactation; O36.63X0 Maternal care for excessive fetal growth, third trimester, not applicable or unspecified; Z3A.39 39 weeks gestation of pregnancy; Z67.40 Type O blood, Rh positive
CPT/HCPCS: 59300; 36415; 85027; 86850; 86900; 86901; 99252; J2590; J3490